=== PATIENT | female | born 1975 | race Caucasian/White ===

== ENCOUNTER 2023-10-16 15:54 | Emergency (ER) | payer OTHER, SELFPAY ==
[2023-10-16] VITALS (10 sets, daily range): BP systolic 156–197; BP diastolic 85–110; PULSE 100–110; RESP 18–20; TEMP 36.9–37; O2SAT 93–100; BMI 48.4
--- NOTE | 2023-10-16 16:45 | ED_ITS ---
HPI - Abdominal Pain General Chief Complaint: Abdominal Pain Stated Complaint: ABDOMINAL PAIN Time Seen by Provider: 10/16/23 16:44 Source: patient Mode of arrival: walk-in Limitations: no limitations History of Present Illness HPI narrative: patient's here for evaluation of lower left abdominal pain. She's had it for three days but getting worse. She's had two colonoscopies in the past but is not known to have any malignancies cancer or polyps. She's had staged total hysterectomy, cholecystectomy. She still has her appendix but the pain is on the left side. She has no history of kidney stones. She said the most the pain is in the abdomen but radiates across the suprapubic area as well. She does not have any urinary symptoms such as frequency urgency dysuria or hematuria. Her bowel movements have not been black. She's not had fever shakes or chills. She is not taking any antibiotics. Does not have any epigastric or upper abdominal pain. She has no discomforts in her chest and she has no shortness of breath. Related Data Home Medications Medication Instructions Recorded Confirmed aspirin 81 mg chewable tablet 1 tab PO DAILY 10/16/23 10/16/23 losartan 50 mg tablet 50 mg PO DAILY 10/16/23 10/16/23 metformin 500 mg tablet,extended 500 mg PO .daily 10/16/23 10/16/23 release 24 hr Allergies Allergy/AdvReac Type Severity Reaction Status Date / Time No Known Drug Allergies Allergy Verified 10/16/23 15:57 Exam Constitutional Vital Signs, click to edit/add: Last Vital Signs Temp 98.6 F 10/16/23 15:57 Pulse 110 H 10/16/23 15:57 Resp 18 10/16/23 15:57 BP 197/110 H 10/16/23 15:57 Pulse Ox 99 10/16/23 15:57 O2 Del Method Room Air 10/16/23 15:57 Course Vital Signs Vital signs: Vital Signs Temperature 98.6 F 10/16/23 15:57 Pulse Rate 110 H 10/16/23 15:57 Respiratory Rate 18 10/16/23 15:57 Blood Pressure 197/110 H 10/16/23 15:57 Pulse Oximetry 99 10/16/23 15:57 Oxygen Delivery Method Room Air 10/16/23 15:57 Temperature 98.6 F 10/16/23 15:57 Pulse Rate 110 H 10/16/23 15:57 Respiratory Rate 18 10/16/23 15:57 Blood Pressure 197/110 H 10/16/23 15:57 Pulse Oximetry 99 10/16/23 15:57 Oxygen Delivery Method Room Air 10/16/23 15:57 MDM - Abdominal Pain MDM Narrative Medical decision making narrative: patient has no acute peritoneal findings but a CT was done to rule out any complications of what clinically is diverticulitis. In fact the CT confirmed that diagnosis. Her white blood cell count is elevated. We'll start her on intravenous Cipro and Flagyl here in the Emergency Room with outpatient follow- up Discharge Plan Discharge Chief Complaint: Abdominal Pain Clinical Impression: Diverticulitis Patient Disposition: Home, Self-Care Time of Disposition Decision: 19:01 Prescriptions / Home Meds: No Action metformin 500 mg tablet extended release 24 hr 500 mg PO .daily losartan 50 mg tablet 50 mg PO DAILY aspirin 81 mg tablet,chewable 1 tab PO DAILY Additional Instructions: Cipro/Flagyl Stand Alone Forms: Portal Instructions Referrals: Physician,Non-Staff, MD [Primary Care Provider] - 1 week
--- NOTE | 2023-10-16 16:54 | CT_ITS ---
[address] [address] Patient Name: ISHAN MOCTEZUMA MRN: [id number] date: 1975 Sex: F Assigned Patient Location: ER Current Patient Location: Accession/Order Number: [id number] Exam Date: 10/16/2023 17:22 Report Date: 10/16/2023 18:04 At the request of: BA GREEN Procedure: CT abdomen pelvis w con EXAM: CT abdomen pelvis w con; [id number] REASON FOR EXAM: left mid and lower abdominal pain TECHNIQUE: Helical CT images of the abdomen and pelvis were obtained after the administration of IV contrast. Multiplanar reformats were generated at the scanner. Dose reduction technique used: Automated exposure control and/or adjustment of the mA and/or kV according to patient size and/or use of iterative reconstruction technique. COMPARISON: CT abdomen/pelvis 07/12/2021. FINDINGS: Visualized Chest: No pleural effusion or any significant pulmonary findings. Abdomen: Liver: Within normal limits. Gallbladder: Resected. Bile Ducts: Within expected limits postcholecystectomy. Pancreas: No mass, ductal dilatation, or inflammatory changes. Spleen: No splenomegaly or focal lesion. Adrenals: No nodules. Kidneys: -No stones or hydronephrosis. -No mass. Vascular: No aortic aneurysm. Incidentally noted retroaortic left renal vein. Lymph Nodes: No adenopathy. Abdominal Wall: No hernia or mass. Pelvis: No mass or adenopathy. Bowel/Peritoneal Cavity/Mesentery: -Moderate pericolonic fat stranding and trace free fluid in an area of moderate diverticulosis involving the mid sigmoid colon (for example series 3 image 119). No loculated fluid collection or evidence of gross perforation. -No bowel obstruction. -No free air. Musculoskeletal: No acute fracture or suspicious osseous lesion. CT/CT abdomen pelvis w con IMPRESSION: Moderate/severe acute uncomplicated diverticulitis of the mid sigmoid colon. Electronically authenticated by: WHIT BURKETT Date: 10/16/2023 18:04
[2023-10-16 17:03] LABS: Bilirubin Urine NEGATIVE (NEGATIVE); Blood Urine MODERATE (NEGATIVE); Clarity Urine CLEAR (CLEAR); Color Urine YELLOW (YELLOW); Glucose Urine UA NEGATIVE (NEGATIVE); Ketones Urine NEGATIVE (NEGATIVE); Leukocyte Esterase Urine NEGATIVE (NEGATIVE); Nitrite Urine NEGATIVE (NEGATIVE); Protein Urine NEGATIVE (NEG/TRACE); Urobilinogen Urine 0.2 EU/dL (0.2-1.0)
[2023-10-16] MEDS: HYDROMORPHONE HCL 1 MG/ML CARTRIDGE IV ×2 (17:04→19:33)
[2023-10-16 17:07] LABS: Urine Microscopic Indicated YES
[2023-10-16 17:12] LABS: Bacteria Urine MODERATE #/HPF (NONE SEEN); Cast Seen? NONE SEEN #/LPF (NONE SEEN); Crystals Seen? None Seen #/HPF (None Seen); Mucus Urine NONE SEEN (NONE SEEN); Squamous Epithelial Cell Urine FEW #/LPF (NONE/RARE); Urine Culture Indicated YES
[2023-10-16 17:13] LABS: HCG Qualitative Urine* NEGATIVE (NEGATIVE)
[2023-10-16 17:27] LABS: Basophils Absolute Auto 0.1 10^3/uL (0.0-0.1); Basophils Percent Auto 0.3 % (0.2-2.0); Eosinophils Absolute Auto 0.2 10^3/uL (0.0-0.7); Hemoglobin 13.5 g/dL (12.0-16.0); Immature Granulocytes Abs Auto 0.08 10^3/uL (0.00-0.03); Immature Granulocytes Pct Auto 0.4 % (0.0-0.5); Lymphocytes Percent Auto 9.9 % (20.5-60.0); Mean Corpuscular HGB Conc 32.1 g/dL (29.9-35.2); Mean Corpuscular Hemoglobin 28.2 pg (26.7-34.0); Mean Corpuscular Volume 87.9 fL (81.0-99.0); Mean Platelet Volume 9.8 fL (9.5-13.5); Monocytes Absolute Auto 1.4 10^3/uL (0.3-0.8); Monocytes Percent Auto 6.8 % (1.7-12.0); Neutrophils Absolute Auto 16.1 10^3/uL (1.4-6.5); Neutrophils Percent Auto 81.6 % (43.0-75.0); Platelet Count 332 10^3/uL (150-450); Red Blood Count 4.78 10^6/uL (4.20-5.40); White Blood Count 19.7 10^3/uL (4.0-11.0)
[2023-10-16 17:42] LABS: Alanine Aminotransferase 35 U/L (14-59); Albumin Globulin Ratio 0.8; Albumin Level 3.5 g/dL (3.4-5.0); Alkaline Phosphatase 86 U/L (46-116); Anion Gap 10.9; Aspartate Amino Transferase 20 U/L (15-37); BUN Creatinine Ratio 13.8; Bilirubin Total 0.8 mg/dL (0.2-1.0); Carbon Dioxide 28.7 mmol/L (21.0-32.0); Chloride 103 mmol/L (98-107); Estimated GFR (African America >60 (>=60); Estimated GFR (Non-African Ame >60 (>=60); Globulin 4.3 g/dL; Glucose 113 mg/dL (74-106); Potassium 3.6 mmol/L (3.5-5.1); Sodium 139 mmol/L (136-145); Total Protein 7.8 g/dL (6.4-8.2)
[2023-10-16] MEDS: CIPROFLOXACIN IN 5 % DEXTROSE 400 MG/200 ML PIGGYBACK 200 MG IV (19:33)
[2023-10-16] MEDS: ONDANSETRON PF 4 MG/2 ML VIAL IV (20:35)
[2023-10-16] MEDS: METRONIDAZOLE/SODIUM CHLORIDE 500 MG/100 ML PREMIX 100 MG IV (20:36)
== END 2023-10-16 22:15 | disposition home or self-care (01) ==
PROVIDERS: Emergency Provider Emergency Medicine Emergency Medical Services
DX: K57.32 Diverticulitis of large intestine without perforation or abscess without bleeding (principal); Z90.710 Acquired absence of both cervix and uterus; Z90.49 Acquired absence of other specified parts of digestive tract; Z79.82 Long term (current) use of aspirin; Z79.899 Other long term (current) drug therapy; Z79.84 Long term (current) use of oral hypoglycemic drugs
CPT/HCPCS: 36415; 74177; 80053; 81001; 84703; 85025; 87086; 96365; 96367; 96375; 96376; 99285; J1170; Q9967

== ENCOUNTER 2023-10-30 14:30 | Inpatient (IN) | payer OTHER, SELFPAY ==
[2023-10-30] VITALS (7 sets, daily range): BP systolic 112–165; BP diastolic 65–109; PULSE 72–93; RESP 16–20; TEMP 36.4–37.7; O2SAT 94–98; BMI 43.5; BMI 44.6
--- NOTE | 2023-10-30 14:55 | CT_ITS ---
[place] [id number] Patient Name: ISHAN MOCTEZUMA MRN: [id number] date: 1975 Sex: F Assigned Patient Location: ER Current Patient Location: ER Accession/Order Number: [id number] Exam Date: 10/30/2023 15:47 Report Date: 10/30/2023 16:38 At the request of: RAMAKRISHNA JACKSON Procedure: CT abdomen pelvis w con EXAMINATION: CT abdomen pelvis w con, 10/30/2023 12:47 PM PST HISTORY: Diverticulitis COMPARISON: 10/16/2023 TECHNIQUE: CT scan of the abdomen and pelvis was performed with IV contrast. CT dose reduction technique was used, including Automated Exposure Control. FINDINGS: Lung: No significant finding. Liver: Hepatic steatosis. Gallbladder: Absent. Spleen: No significant finding. Pancreas: No significant finding. Adrenal glands: No significant finding. Kidneys, ureters and bladder: No significant finding. Bowel: Colonic diverticulosis with pericolonic stranding involving the mid to distal descending colon. Small amount of free peritoneal fluid. No well-formed drainable collection. No free air. Peritoneum/retroperitoneum: As above. Lymph nodes: No significant finding. Vessels: Retroaortic left renal vein. Body wall: No significant finding. Reproductive: No significant finding. Bones: No significant finding. CT/CT abdomen pelvis w con IMPRESSION: Mid to distal descending colon diverticulitis. Hepatic steatosis. Electronically authenticated by: YASMEEN MCKAY Date: 10/30/2023 16:38
[2023-10-30] MEDS: 0.9 % SODIUM CHLORIDE 1,000 ML 999 ML IV (15:18)
[2023-10-30 15:26] LABS: Basophils Absolute Auto 0.1 10^3/uL (0.0-0.1); Basophils Percent Auto 0.3 % (0.2-2.0); Eosinophils Absolute Auto 0.3 10^3/uL (0.0-0.7); Eosinophils Percent Auto 1.5 % (0.9-7.0); Hematocrit 42.7 % (36.0-48.0); Hemoglobin 13.6 g/dL (12.0-16.0); Immature Granulocytes Abs Auto 0.07 10^3/uL (0.00-0.03); Immature Granulocytes Pct Auto 0.4 % (0.0-0.5); Lymphocytes Absolute Auto 1.9 10^3/uL (1.2-3.8); Mean Corpuscular HGB Conc 31.9 g/dL (29.9-35.2); Mean Corpuscular Hemoglobin 27.8 pg (26.7-34.0); Mean Corpuscular Volume 87.1 fL (81.0-99.0); Mean Platelet Volume 9.6 fL (9.5-13.5); Monocytes Absolute Auto 1.1 10^3/uL (0.3-0.8); Monocytes Percent Auto 5.7 % (1.7-12.0); Neutrophils Absolute Auto 15.7 10^3/uL (1.4-6.5); Neutrophils Percent Auto 82.1 % (43.0-75.0); Platelet Count 392 10^3/uL (150-450); Red Cell Distribution Width 12.9 % (11.0-15.0); White Blood Count 19.1 10^3/uL (4.0-11.0)
[2023-10-30 15:27] LABS: Bilirubin Urine NEGATIVE (NEGATIVE); Blood Urine SMALL (NEGATIVE); Clarity Urine CLEAR (CLEAR); Color Urine LT. YELLOW (YELLOW); Glucose Urine UA NEGATIVE (NEGATIVE); Ketones Urine NEGATIVE (NEGATIVE); Leukocyte Esterase Urine NEGATIVE (NEGATIVE); Nitrite Urine NEGATIVE (NEGATIVE); Protein Urine NEGATIVE (NEG/TRACE); Urine Microscopic Indicated YES; Urobilinogen Urine 0.2 EU/dL (0.2-1.0); pH Urine 6.5 (5.0-9.0)
[2023-10-30 15:39] LABS: Bacteria Urine TRACE #/HPF (NONE SEEN); Cast Seen? NONE SEEN #/LPF (NONE SEEN); Crystals Seen? None Seen #/HPF (None Seen); Mucus Urine NONE SEEN (NONE SEEN); RBC Urine 0-2 #/HPF (0-2); Squamous Epithelial Cell Urine RARE #/LPF (NONE/RARE); WBC Urine NONE SEEN #/HPF (NONE SEEN)
[2023-10-30 15:40] LABS: Urine Culture Indicated NO
--- NOTE | 2023-10-30 15:42 | ED.ABDPAIN1 ---
HPI - Abdominal Pain General Chief Complaint: Abdominal Pain Stated Complaint: ABDOMINAL PAIN Time Seen by Provider: 10/30/23 14:54 Source: patient Mode of arrival: walk-in Limitations: no limitations History of Present Illness HPI narrative: Patient is a 48-year-old female who presents to the emergency department for worsening abdominal pain that began last night. She was seen in this emergency department 2 weeks ago and diagnosed with diverticulitis, discharged home on Cipro and Flagyl. She states she finished these medications over a week ago and had some improvement of pain with the medications. She followed up with a GI specialist at [facility] who is scheduling a colonoscopy for her in December. She states last night she had a return of severe pain across the low abdomen, worse on the right side. She has had no fevers or vomiting. No urinary symptoms. No medications taken prior to arrival. She has had a previous total hysterectomy. Related Data Home Medications Medication Instructions Recorded Confirmed aspirin 81 mg chewable tablet 1 tab PO DAILY 10/16/23 10/16/23 losartan 50 mg tablet 50 mg PO DAILY 10/16/23 10/16/23 metformin 500 mg tablet,extended 500 mg PO .daily 10/16/23 10/16/23 release 24 hr cholecalciferol (vitamin D3) 125 5,000 unit PO DAILY 10/30/23 10/30/23 mcg (5,000 unit) capsule Allergies Allergy/AdvReac Type Severity Reaction Status Date / Time No Known Drug Allergies Allergy Verified 10/16/23 15:57 Review of Systems ROS Constitutional Denies: fever or chills Ears, nose, mouth, and throat Denies: throat pain or nasal congestion Cardiovascular Denies: chest pain Respiratory Denies: shortness of breath or cough Gastrointestinal Reports: abdominal pain; Denies: nausea, vomiting or diarrhea Genitourinary Denies: painful urination Musculoskeletal Reports: back pain Integumentary/Breast Denies: rash Neurological Denies: headache PFSH PFSH Social History Smoking status: Former smoker Exam Narrative Exam Narrative: Gen.: Awake, alert, in no distress Head: Normocephalic, atraumatic ENT: Moist mucous membranes Respiratory: No respiratory distress, lungs clear bilaterally Cardio: Regular rate and rhythm Gastrointestinal: Abdomen is soft, nondistended and diffusely tender to palpation Extremities: Moves extremities equally Psych: Normal mood and affect Neuro: No focal neuro deficit Skin: Warm, dry, intact Constitutional Vital Signs, click to edit/add: Last Vital Signs Temp 99.8 F 10/30/23 14:50 Pulse 86 10/30/23 16:09 Resp 16 10/30/23 16:09 BP 126/76 10/30/23 16:09 Pulse Ox 98 10/30/23 16:09 O2 Del Method Room Air 10/30/23 16:09 Course Vital Signs Vital signs: Vital Signs Temperature 99.8 F 10/30/23 14:50 Pulse Rate 93 H 10/30/23 14:50 Respiratory Rate 18 10/30/23 14:50 Blood Pressure 165/109 H 10/30/23 14:50 Pulse Oximetry 97 10/30/23 14:50 Oxygen Delivery Method Room Air 10/30/23 14:50 Temperature 99.8 F 10/30/23 14:50 Pulse Rate 86 10/30/23 16:09 Respiratory Rate 16 10/30/23 16:09 Blood Pressure 126/76 10/30/23 16:09 Pulse Oximetry 98 10/30/23 16:09 Oxygen Delivery Method Room Air 10/30/23 16:09 MDM - Abdominal Pain MDM Narrative Medical decision making narrative: Patient treated with IV fluids, Dilaudid, Zofran. Vital signs are within normal limits. Lab studies show the patient still has significant leukocytosis with a white blood cell count 19.1, normal lactic acid. Urine specimen with no evidence of UTI. CT of the abdomen and pelvis continues to show mid to distal colon diverticulitis, no free air or abscess. I discussed the case with Dr. Ferguson, her GI specialist who she followed up with after her last ER visit. He recommended inpatient treatment with IV antibiotics, patient will be started on IV Zosyn. Admitted to the hospitalist for further evaluation and treatment. Stable at this time. Medical Records Attestation: I reviewed the patient's medical records. Lab Data Attestation: I reviewed the patient's lab results. Labs: Lab Results 10/30/23 Range/Units 15:11 WBC 19.1 H (4.0-11.0) 10^3/uL RBC 4.90 (4.20-5.40) 10^6/uL Hgb 13.6 (12.0-16.0) g/dL Hct 42.7 (36.0-48.0) % MCV 87.1 (81.0-99.0) fL MCH 27.8 (26.7-34.0) pg MCHC 31.9 (29.9-35.2) g/dL RDW 12.9 (11.0-15.0) % Plt Count 392 (150-450) 10^3/uL MPV 9.6 (9.5-13.5) fL Neut % (Auto) 82.1 H (43.0-75.0) % Lymph % (Auto) 10.0 L (20.5-60.0) % [place] % (Auto) 5.7 (1.7-12.0) % Eos % (Auto) 1.5 (0.9-7.0) % Baso % (Auto) 0.3 (0.2-2.0) % Neut # (Auto) 15.7 H (1.4-6.5) 10^3/uL Lymph # (Auto) 1.9 (1.2-3.8) 10^3/uL [place] # (Auto) 1.1 H (0.3-0.8) 10^3/uL Eos # (Auto) 0.3 (0.0-0.7) 10^3/uL Baso # (Auto) 0.1 (0.0-0.1) 10^3/uL Abs Immat Gran (auto) 0.07 H (0.00-0.03) 10^3/uL Imm/Tot Granulo (auto) 0.4 (0.0-0.5) % Sodium 137 (136-145) mmol/L Potassium 4.2 (3.5-5.1) mmol/L Chloride 102 (98-107) mmol/L Carbon Dioxide 26.4 (21.0-32.0) mmol/L Anion Gap 12.8 BUN 8.0 (7.0-18.0) mg/dL Creatinine 0.65 (0.55-1.02) mg/dL Est GFR ( Amer) >60 (>=60) Est GFR (Non-Af Amer) >60 (>=60) BUN/Creatinine Ratio 12.3 Glucose 128 H (74-106) mg/dL Lactate 1.9 (0.4-2.0) mmol/L Calcium 8.9 (8.5-10.1) mg/dL Total Bilirubin 0.8 (0.2-1.0) mg/dL AST 18 (15-37) U/L ALT 37 (14-59) U/L Alkaline Phosphatase 93 (46-116) U/L Total Protein 8.1 (6.4-8.2) g/dL Albumin 3.6 (3.4-5.0) g/dL Globulin 4.5 g/dL Albumin/Globulin Ratio 0.8 Lipase 26.0 (16.0-77.0) U/L Urine Color Lt. yellow (YELLOW) Urine Clarity Clear (CLEAR) Urine pH 6.5 (5.0-9.0) Ur Specific [place] 1.020 (1.005-1.025) Urine Protein Negative (NEG/TRACE) mg/dL Urine Glucose (UA) Negative (NEGATIVE) mg/dL Urine Ketones Negative (NEGATIVE) mg/dL Urine Occult Blood Small A (NEGATIVE) Urine Nitrite Negative (NEGATIVE) Urine Bilirubin Negative (NEGATIVE) Urine Urobilinogen 0.2 (0.2-1.0) EU/dL Ur Leukocyte Esterase Negative (NEGATIVE) Urine RBC 0-2 (0-2) #/HPF Urine WBC None seen (NONE SEEN) #/HPF Ur Squamous Epith Cells Rare (NONE/RARE) #/LPF Urine Crystals None seen (None Seen) #/HPF Urine Bacteria Trace A (NONE SEEN) #/HPF Urine Casts None seen (NONE SEEN) #/LPF Urine Mucus None seen (NONE SEEN) Ur Culture Indicated? No Imaging Data CT scan - abdomen: Attestation: I have reviewed the pertinent imaging results. Discharge Plan Discharge Chief Complaint: Abdominal Pain Clinical Impression: Diverticulitis, Abdominal pain Patient Disposition: Admitted as Observation Time of Disposition Decision: 17:23 Prescriptions / Home Meds: No Action metformin 500 mg tablet extended release 24 hr 500 mg PO .daily losartan 50 mg tablet 50 mg PO DAILY aspirin 81 mg tablet,chewable 1 tab PO DAILY Referrals: Physician,Non-Staff, [Primary Care Provider] - 1 week
[2023-10-30 15:45] LABS: Lactate/Lactic Acid 1.9 mmol/L (0.4-2.0)
[2023-10-30 15:52] LABS: Alanine Aminotransferase 37 U/L (14-59); Albumin Globulin Ratio 0.8; Albumin Level 3.6 g/dL (3.4-5.0); Alkaline Phosphatase 93 U/L (46-116); Anion Gap 12.8; Aspartate Amino Transferase 18 U/L (15-37); BUN Creatinine Ratio 12.3; Bilirubin Total 0.8 mg/dL (0.2-1.0); Calcium 8.9 mg/dL (8.5-10.1); Carbon Dioxide 26.4 mmol/L (21.0-32.0); Chloride 102 mmol/L (98-107); Estimated GFR (African America >60 (>=60); Estimated GFR (Non-African Ame >60 (>=60); Globulin 4.5 g/dL; Glucose 128 mg/dL (74-106); Potassium 4.2 mmol/L (3.5-5.1); Sodium 137 mmol/L (136-145); Total Protein 8.1 g/dL (6.4-8.2)
[2023-10-30] MEDS: HYOSCYAMINE SULFATE 0.125 MG TAB.SUBL SL (16:04)
[2023-10-30] MEDS: ONDANSETRON PF 4 MG/2 ML VIAL IV (16:05)
[2023-10-30] MEDS: HYDROMORPHONE HCL 1 MG/ML CARTRIDGE IV (16:05)
--- NOTE | 2023-10-30 17:31 | P.HP_ITS ---
H&P: HPI History of Present Illness Chief complaint: ABDOMINAL PAIN, diverticulitis Narrative: patient is a 48-year-old female with past medical history of diverticulitis/diverticulosis in which she has had several colonoscopies in the past, type 2 diabetes, hypertension. 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 She presented to the Emergency Room today with pain and was found to have elevated white blood cell count along with a CT abdomen and pelvis that was positive for diverticulitis, no evidence of abscess. Since patient has failed outpatient regimens she will be admitted for treatment of her acute diverticulitis. Lactate level on admission was negative. at the time of admission she feels her pain is improved from the pain medication that was given in the Emergency Room, but still admits to diffuse abdominal pain. She denies any diarrhea, nausea or vomiting.urine test was negative. Feels comfortable at bedside after pain meds in ER. Review of Systems ROS Narrative ROS: a complete review of systems were reviewed with patient and are positive as below or listed in History of Chief Complaint. General: no fever, chills, night sweats Head: no headache, trauma, visual changes, nausea or vomiting Skin: no reported rashes, itching or sores Eyes: no blurriness of vision Ears: no reported hearing loss, vertigo, earache, or tinnitus Throat: no sore throat, hoarseness, swelling of neck, or tongue pain Heart: no chest pain Lungs: no shortness of breath or cough GI: no diarrhea or vomiting/nausea, diffuse abdominal pain Urinary: no urinary urgency, frequency or pain Neuro: no numbness or tingling HEM: no bleeding issues or bruising ENDO: no thyroid problems Psych: no anxiety or depression PFSH PFSH Medical History (Updated 10/30/23 @ 18:31 by Kailee Mike) Mini stroke ?G45.9 - Transient cerebral ischemic attack, unspecified (ICD-10) Hypertension ?I10 - Essential (primary) hypertension (ICD-10) Type 2 diabetes mellitus ?E11.9 - Type 2 diabetes mellitus without complications (ICD-10) Surgical History (Updated 10/30/23 @ 18:30 by Kailee Mike) Hx laparoscopic cholecystectomy ?Z90.49 - Acquired absence of other specified parts of digestive tract (ICD- 10) H/O: hysterectomy ?Z90.710 - Acquired absence of both cervix and uterus (ICD-10) Family History (Updated 10/30/23 @ 18:31 by Kailee Mike) Mother Family history of CHF (congestive heart failure) Family history of COPD (chronic obstructive pulmonary disease) Family history of diabetes mellitus Family history of hypertension Family history of stroke Father Family history of hypertension Family history of diabetes mellitus Social History (Updated 10/30/23 @ 18:33 by Kailee Mike) Within the past year, how often did you have a drink containing alcohol: never Score interpretation: A score less than 3 is consistent with normal alcohol consumption. Smoking status: Former smoker Non-prescribed substance use: denies use Previous occupational history: unemployed Highest level of school completed/degree received: some college, no degree Are you now , , , , never or living with a partner: Little interest or pleasure in doing things: not at all Feeling down, depressed, or hopeless: not at all Life stressors: recent of family or friend Life stressor details: dad passed January 23 Do you think of yourself as: straight/heterosexual Meds Home Medications and Allergies Home Medications Medication Instructions Recorded Confirmed Type aspirin 81 mg chewable tablet 1 tab PO DAILY 10/16/23 10/30/23 History losartan 50 mg tablet 50 mg PO DAILY 10/16/23 10/30/23 History metformin 500 mg tablet,extended 500 mg PO .daily 10/16/23 10/30/23 History release 24 hr cholecalciferol (vitamin D3) 125 5,000 unit PO DAILY 10/30/23 10/30/23 History mcg (5,000 unit) capsule rosuvastatin 10 mg tablet (Crestor) 10 mg PO DAILY 10/30/23 10/30/23 History Allergies Allergy/AdvReac Type Severity Reaction Status Date / Time No Known Drug Allergies Allergy Verified 10/16/23 15:57 Exam Narrative Exam Narrative: General: Patient is alert, and oriented to person, place and time with normal affect, proper hygiene Skin: no visible rashes, or ulcers Head: atraumatic, acephalic Eyes: PERRLA, no nystagmus present, conjunctiva clear, no scleral icterus Ears:normal gross auditory acuity Heart: Normal rate and rhythm, no murmurs/rubs/gallops Lungs: no audible wheezes, crackles and normal breath sounds all lung bethea Abdomen: Normal audible bowel sounds, no distension, mild diffuse tenderness with palpation without rebound/guarding/ or rigidity Musculoskeletal: no swelling bilateral lower extremities Neuro: CN II-X grossly intact Constitutional Vital Signs, click to edit/add: Last Vital Signs Temp 99.8 F 10/30/23 14:50 Pulse 86 10/30/23 16:09 Resp 16 10/30/23 16:09 BP 126/76 10/30/23 16:09 Pulse Ox 98 10/30/23 16:09 O2 Del Method Room Air 10/30/23 16:09 Results Labs Labs: Short CBC 10/30/23 Range/Units 15:11 WBC 19.1 H (4.0-11.0) 10^3/uL Hgb 13.6 (12.0-16.0) g/dL Hct 42.7 (36.0-48.0) % Plt Count 392 (150-450) 10^3/uL BMP 10/30/23 15:11 Sodium 137 Potassium 4.2 Chloride 102 Carbon Dioxide 26.4 BUN 8.0 Creatinine 0.65 Glucose 128 H Calcium 8.9 Liver Function 10/30/23 Range/Units 15:11 Total Bilirubin 0.8 (0.2-1.0) mg/dL AST 18 (15-37) U/L ALT 37 (14-59) U/L Alkaline Phosphatase 93 (46-116) U/L Albumin 3.6 (3.4-5.0) g/dL Urine 10/30/23 Range/Units 15:11 Urine Color Lt. yellow (YELLOW) Urine Clarity Clear (CLEAR) Urine pH 6.5 (5.0-9.0) Ur Specific [place] 1.020 (1.005-1.025) Urine Protein Negative (NEG/TRACE) mg/dL Urine Glucose (UA) Negative (NEGATIVE) mg/dL Assessment and Plan Assessment and Plan (1) Acute diverticulitis of intestine: Assessment and Plan: diagnosis made by CT scan, has failed outpatient treatment we'll treat with IV Zosyn every 8 hours, will monitor lactate levels. Patient also had leukocytosis and will monitor daily. No evidence of abscess on CT scan. We'll consult general surgery if symptoms worsen instead of improve.clear liquid diet and pain control as needed, IV fluids with LR at one twenty-five (2) Type 2 diabetes mellitus: Assessment and Plan: hold metformin, sliding scale insulin as needed Qualifiers: Diabetes mellitus complication status: without complication Diabetes mellitus termite inspector insulin use: without termite inspector use Qualified Code(s): E11.9 - Type 2 diabetes mellitus without complications (3) Hypertension: Assessment and Plan: continue home losartan Qualifiers: Hypertension type: primary hypertension Qualified Code(s): I10 - Essential (primary) hypertension Plan patient is full code Lovenox for deep vein thrombosis prophylaxis Patient is an inpatient status is expected to stay more than two midnights
[2023-10-30] MEDS: PIPERACILLIN SODIUM/TAZOBACTAM 4.5 GM in 0.9 % SODIUM CHLORIDE 50 ML IV (17:41)
[2023-10-30 18:12] LABS: Alanine Aminotransferase 33 U/L (14-59); Albumin Globulin Ratio 0.8; Albumin Level 3.1 g/dL (3.4-5.0); Alkaline Phosphatase 80 U/L (46-116); Anion Gap 8.9; Aspartate Amino Transferase 18 U/L (15-37); BUN Creatinine Ratio 11.5; Bilirubin Total 0.7 mg/dL (0.2-1.0); Calcium 8.2 mg/dL (8.5-10.1); Chloride 103 mmol/L (98-107); Estimated GFR (African America >60 (>=60); Estimated GFR (Non-African Ame >60 (>=60); Globulin 3.9 g/dL; Glucose 107 mg/dL (74-106); Potassium 3.9 mmol/L (3.5-5.1); Sodium 138 mmol/L (136-145)
[2023-10-30] MEDS: LACTATED RINGER'S SOLUTION 1,000 ML 125 ML IV (18:28)
[2023-10-30 19:58] LABS: Glucometer 107 mg/dL (74-106)
[2023-10-30] MEDS: ACETAMINOPHEN 325 MG TABLET 650 MG PO (20:05)
[2023-10-30] MEDS: PANTOPRAZOLE SODIUM 40 MG VIAL IV (21:43)
[2023-10-30] MEDS: ENOXAPARIN SODIUM 40 MG/0.4 ML SYRINGE SUBQ (21:43)
[2023-10-31] VITALS (16 sets, daily range): BP systolic 129–147; BP diastolic 69–84; PULSE 65–94; RESP 18–20; TEMP 36.4–36.9; O2SAT 95–97
[2023-10-31] MEDS: LACTATED RINGER'S SOLUTION 1,000 ML 125 ML IV ×3 (02:05→16:34)
[2023-10-31] MEDS: KETOROLAC TROMETHAMINE 30 MG/ML VIAL IVP (03:00)
[2023-10-31 05:27] LABS: Basophils Percent Auto 0.3 % (0.2-2.0); Eosinophils Absolute Auto 0.3 10^3/uL (0.0-0.7); Hematocrit 36.6 % (36.0-48.0); Hemoglobin 11.4 g/dL (12.0-16.0); Immature Granulocytes Abs Auto 0.03 10^3/uL (0.00-0.03); Immature Granulocytes Pct Auto 0.3 % (0.0-0.5); Lymphocytes Absolute Auto 2.2 10^3/uL (1.2-3.8); Lymphocytes Percent Auto 19.1 % (20.5-60.0); Mean Corpuscular HGB Conc 31.1 g/dL (29.9-35.2); Mean Corpuscular Hemoglobin 27.5 pg (26.7-34.0); Mean Corpuscular Volume 88.2 fL (81.0-99.0); Monocytes Absolute Auto 0.8 10^3/uL (0.3-0.8); Monocytes Percent Auto 6.6 % (1.7-12.0); Neutrophils Percent Auto 70.7 % (43.0-75.0); Platelet Count 316 10^3/uL (150-450); Red Blood Count 4.15 10^6/uL (4.20-5.40); Red Cell Distribution Width 12.8 % (11.0-15.0); White Blood Count 11.4 10^3/uL (4.0-11.0)
[2023-10-31 05:50] LABS: Lactate/Lactic Acid 0.8 mmol/L (0.4-2.0)
[2023-10-31 08:06] LABS: Glucometer 99 mg/dL (74-106)
[2023-10-31 08:12] LABS: Alanine Aminotransferase 38 U/L (14-59); Albumin Globulin Ratio 0.7; Albumin Level 2.9 g/dL (3.4-5.0); Alkaline Phosphatase 83 U/L (46-116); Anion Gap 13.5; Aspartate Amino Transferase 39 U/L (15-37); BUN Creatinine Ratio 10.3; Bilirubin Total 0.7 mg/dL (0.2-1.0); Calcium 8.2 mg/dL (8.5-10.1); Carbon Dioxide 27.3 mmol/L (21.0-32.0); Chloride 105 mmol/L (98-107); Estimated GFR (African America >60 (>=60); Estimated GFR (Non-African Ame >60 (>=60); Globulin 3.9 g/dL; Glucose 100 mg/dL (74-106); Potassium 3.8 mmol/L (3.5-5.1); Sodium 142 mmol/L (136-145); Total Protein 6.8 g/dL (6.4-8.2)
[2023-10-31] MEDS: PANTOPRAZOLE SODIUM 40 MG VIAL IV (08:33)
[2023-10-31] MEDS: ASPIRIN 81 MG TABLET.DR PO (09:03)
[2023-10-31] MEDS: PIPERACILLIN SODIUM/TAZOBACTAM 3.375 GM in 0.9 % SODIUM CHLORIDE 50 ML IV ×2 (09:05→16:33)
[2023-10-31] MEDS: LOSARTAN POTASSIUM 50 MG TABLET 25 MG PO (09:12)
--- NOTE | 2023-10-31 09:34 | P.PN_ITS ---
<Statement entered by Donna Sanchez DO - 10/31/23 13:32> This documentation has been reviewed and approved. I have also seen and evaluated patient, chart and findings. I agree with the above and assessments and plan. Progress Note: Subjective Subjective Interval history: 10/31/23 0840 The patient is resting in bed at the time of my exam. She awakens easily to voice and answers all questions appropriately. She denies abdominal pain at rest, denies nausea and vomiting overnight. She does note abdominal tenderness with palpation but reports that her symptoms are improving. As she failed outpatient treatment with p.o. Cipro and Flagyl, we believe another day of IV Zosyn is indicated to appropriately treat her persistent diverticulitis. We will advance her diet to full liquid at lunch today and see how she tolerates this. Mild increase in AST liver enzyme today. Hepatic steatosis noted on CT imaging. Monitor trend w/ CMP daily and consider further work up pending clinical course. Exam Constitutional Vital Signs, click to edit/add: Last Vital Signs Temp 98 F 10/31/23 05:34 Pulse 72 10/31/23 08:00 Resp 18 10/31/23 05:34 BP 129/69 10/31/23 05:34 Pulse Ox 95 10/31/23 05:34 O2 Del Method Room Air 10/31/23 05:34 Common normals: no apparent distress, oriented x3 and alert General appearance: cooperative Orientation/consciousness: Yes awake HENNY Common normals: normocephalic, head/scalp atraumatic and hearing grossly normal bilaterally Eye Common normals: PERRL, EOMs intact bilaterally, conjunctivae normal and no scleral icterus General eye: normal appearance of both eyes Chest Common normals: inspection of chest normal Chest: symmetrical chest wall rise Respiratory Common normals: normal respiratory effort, no use of accessory muscles and clear to auscultation bilaterally Effort & inspection: able to speak in complete sentences Cardio Common normals: regular rate, regular rhythm, S1 normal heart sound, S2 normal heart sound and peripheral pulses 2+ throughout Heart sounds: murmur (HSM 2/6) GI Common normals: Normal to inspection, nondistended, normoactive bowel sounds present, soft to palpation and no hepatosplenomegaly Palpation: tender (LLQ, L flank); no guarding, not rigid and no rebound tenderness present Bladder/kidney exam: bladder normal to palpation Extremity Common normals: normal to inspection and no calf tenderness General: no clubbing, no cyanosis and no edema Neuro Common normals: CN's II-XII intact bilaterally, moves all extremities, no focal motor deficits and no sensory deficits noted Psych Common normals: mental status grossly normal Progress Note: Objective Labs Labs: Short CBC 10/30/23 10/31/23 Range/Units 15:11 04:51 WBC 19.1 H 11.4 H (4.0-11.0) 10^3/uL Hgb 13.6 11.4 L (12.0-16.0) g/dL Hct 42.7 36.6 (36.0-48.0) % Plt Count 392 316 (150-450) 10^3/uL BMP 10/30/23 10/30/23 10/31/23 15:11 17:45 04:51 Sodium 137 138 142 Potassium 4.2 3.9 3.8 Chloride 102 103 105 Carbon Dioxide 26.4 30.0 27.3 BUN 8.0 7.0 6.0 L Creatinine 0.65 0.61 0.58 Glucose 128 H 107 H 100 Calcium 8.9 8.2 L 8.2 L Liver Function 10/30/23 10/30/23 10/31/23 Range/Units 15:11 17:45 04:51 Total Bilirubin 0.8 0.7 0.7 (0.2-1.0) mg/dL AST 18 18 39 H (15-37) U/L ALT 37 33 38 (14-59) U/L Alkaline Phosphatase 93 80 83 (46-116) U/L Albumin 3.6 3.1 L 2.9 L (3.4-5.0) g/dL Urine 10/30/23 Range/Units 15:11 Urine Color Lt. yellow (YELLOW) Urine Clarity Clear (CLEAR) Urine pH 6.5 (5.0-9.0) Ur Specific [place] 1.020 (1.005-1.025) Urine Protein Negative (NEG/TRACE) mg/dL Urine Glucose (UA) Negative (NEGATIVE) mg/dL Progress Note: A&P Assessment and Plan (1) Acute diverticulitis of intestine: Assessment and Plan: ACUTE * Improving * Continue IV Zosyn every 8 hours * Failed outpatient treatment w/ PO Cipro/Flagyl prescribed by GI provider * Lactate levels - WNL on AM labs. * Leukocytosis improving - 11.4 on AM labs, down from 19.1 on admission * CBC daily * No evidence of abscess on CT scan. 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
[2023-10-31 11:36] LABS: Glucometer 127 mg/dL (74-106)
--- NOTE | 2023-10-31 11:41 | CM.NOTE ---
Rounds made with Dr. Sanchez, no discharge today. No discharge needs identified for patient.
[2023-10-31 16:47] LABS: Glucometer 104 mg/dL (74-106)
[2023-10-31] MEDS: ENOXAPARIN SODIUM 40 MG/0.4 ML SYRINGE SUBQ (20:39)
[2023-10-31 21:06] LABS: Glucometer 142 mg/dL (74-106)
[2023-11-01] VITALS (7 sets, daily range): BP systolic 127; BP diastolic 78; PULSE 59–79; RESP 18; TEMP 36.6; O2SAT 96
[2023-11-01] MEDS: PIPERACILLIN SODIUM/TAZOBACTAM 3.375 GM in 0.9 % SODIUM CHLORIDE 50 ML IV ×2 (01:19→09:23)
[2023-11-01] MEDS: LACTATED RINGER'S SOLUTION 1,000 ML 125 ML IV (04:17)
[2023-11-01] MEDS: KETOROLAC TROMETHAMINE 30 MG/ML VIAL IVP (04:19)
[2023-11-01 04:44] LABS: Basophils Absolute Auto 0.1 10^3/uL (0.0-0.1); Basophils Percent Auto 0.4 % (0.2-2.0); Eosinophils Absolute Auto 0.4 10^3/uL (0.0-0.7); Eosinophils Percent Auto 3.3 % (0.9-7.0); Hematocrit 35.9 % (36.0-48.0); Hemoglobin 11.6 g/dL (12.0-16.0); Immature Granulocytes Abs Auto 0.03 10^3/uL (0.00-0.03); Immature Granulocytes Pct Auto 0.3 % (0.0-0.5); Lymphocytes Absolute Auto 2.9 10^3/uL (1.2-3.8); Lymphocytes Percent Auto 24.7 % (20.5-60.0); Mean Corpuscular HGB Conc 32.3 g/dL (29.9-35.2); Mean Corpuscular Hemoglobin 28.3 pg (26.7-34.0); Mean Corpuscular Volume 87.6 fL (81.0-99.0); Mean Platelet Volume 9.9 fL (9.5-13.5); Monocytes Absolute Auto 0.8 10^3/uL (0.3-0.8); Monocytes Percent Auto 6.5 % (1.7-12.0); Neutrophils Absolute Auto 7.6 10^3/uL (1.4-6.5); Neutrophils Percent Auto 64.8 % (43.0-75.0); Platelet Count 358 10^3/uL (150-450); Red Cell Distribution Width 12.7 % (11.0-15.0); White Blood Count 11.8 10^3/uL (4.0-11.0)
[2023-11-01 05:10] LABS: Alanine Aminotransferase 41 U/L (14-59); Albumin Globulin Ratio 0.8; Alkaline Phosphatase 79 U/L (46-116); Anion Gap 10.4; Aspartate Amino Transferase 21 U/L (15-37); BUN Creatinine Ratio 7.5; Bilirubin Total 0.5 mg/dL (0.2-1.0); Carbon Dioxide 29.1 mmol/L (21.0-32.0); Chloride 103 mmol/L (98-107); Estimated GFR (African America >60 (>=60); Estimated GFR (Non-African Ame >60 (>=60); Globulin 3.9 g/dL; Glucose 103 mg/dL (74-106); Potassium 3.5 mmol/L (3.5-5.1); Sodium 139 mmol/L (136-145); Total Protein 6.9 g/dL (6.4-8.2)
[2023-11-01] MEDS: LOSARTAN POTASSIUM 50 MG TABLET 25 MG PO (08:38)
[2023-11-01] MEDS: ASPIRIN 81 MG TABLET.DR PO (08:38)
[2023-11-01] MEDS: PANTOPRAZOLE SODIUM 40 MG VIAL IV (09:20)
--- NOTE | 2023-11-01 09:57 | P.DS_ITS ---
<Statement entered by Donna Sanchez DO - 11/01/23 13:42> This documentation has been reviewed and approved. I also seen and evaluated patient at the time of discharge. I agree with the above findings and plan for discharge. 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 She just completed a course of Cipro and Flagyl as an outpatient which is considered failed therapy. There was no evidence of abscess on CT imaging. She was treated with IVPB Zosyn and her diet was restricted to clear liquids initially. Her symptoms improved and we were able to successfully advance her diet to a regular diet without resumption of abdominal pain or any other symptom. As her symptoms are resolved, she is being discharged home in stable condition. She has been prescribed Augmentin to complete a 14-day total course. 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 Time Spent with Patient Time attestation: Total time spent providing and/or coordinating discharge services: Time spent: greater than 30 minutes Specific discharge activities: Physical exam, discussion of discharge plan, questions answered. Exam Constitutional Vital Signs, click to edit/add: Last Vital Signs Temp 97.8 F 11/01/23 05:17 Pulse 59 L 11/01/23 08:00 Resp 18 11/01/23 05:17 BP 127/78 11/01/23 05:17 Pulse Ox 96 11/01/23 05:17 O2 Del Method Room Air 11/01/23 05:17 Common normals: no apparent distress, oriented x3 and alert General appearance: cooperative Orientation/consciousness: Yes awake HENMT Common normals: normocephalic and head/scalp atraumatic Eye Common normals: PERRL, EOMs intact bilaterally, conjunctivae normal and no s cleral icterus Neck & C-Spine Common normals: no JVD Respiratory Common normals: normal respiratory effort, no use of accessory muscles and clear to auscultation bilaterally Effort & inspection: able to speak in complete sentences and symmetric chest movement Cardio Common normals: no JVD, regular rate, regular rhythm, S1 normal heart sound, S2 normal heart sound and peripheral pulses 2+ throughout Heart sounds: murmur (HSM 2/6) GI Common normals: Normal to inspection, nondistended, normoactive bowel sounds present and soft to palpation Palpation: tender (Minimal tenderness LLQ) Bladder/kidney exam: bladder normal to palpation Extremity Common normals: normal to inspection, full ROM, normal capillary refill and no pedal edema General: no clubbing and no cyanosis Neuro Common normals: moves all extremities, no focal motor deficits and no sensory deficits noted Speech: speech normal Psych Common normals: mental status grossly normal and activity/motor behavior normal DS: Data Data Completed and Pending Labs on day of discharge: Labs from last 24 hours 11/01/23 10/31/23 10/31/23 04:13 20:55 16:47 WBC 11.8 H RBC 4.10 L Hgb 11.6 L Hct 35.9 L MCV 87.6 MCH 28.3 MCHC 32.3 RDW 12.7 Plt Count 358 MPV 9.9 Neut % (Auto) 64.8 Lymph % (Auto) 24.7 [place] % (Auto) 6.5 Eos % (Auto) 3.3 Baso % (Auto) 0.4 Neut # (Auto) 7.6 H Lymph # (Auto) 2.9 [place] # (Auto) 0.8 Eos # (Auto) 0.4 Baso # (Auto) 0.1 Abs Immat Gran (auto) 0.03 Imm/Tot Granulo (auto) 0.3 Sodium 139 Potassium 3.5 Chloride 103 Carbon Dioxide 29.1 Anion Gap 10.4 BUN 5.0 L Creatinine 0.67 Est GFR ( Amer) >60 Est GFR (Non-Af Amer) >60 BUN/Creatinine Ratio 7.5 Glucose 103 Calcium 9.0 Total Bilirubin 0.5 AST 21 ALT 41 Alkaline Phosphatase 79 Total Protein 6.9 Albumin 3.0 L Globulin 3.9 Albumin/Globulin Ratio 0.8 POC Glucose 142 H 104 10/31/23 11:34 WBC RBC Hgb Hct MCV MCH MCHC RDW Plt Count MPV Neut % (Auto) Lymph % (Auto) [place] % (Auto) Eos % (Auto) Baso % (Auto) Neut # (Auto) Lymph # (Auto) [place] # (Auto) Eos # (Auto) Baso # (Auto) Abs Immat Gran (auto) Imm/Tot Granulo (auto) Sodium Potassium Chloride Carbon Dioxide Anion Gap BUN Creatinine Est GFR ( Amer) Est GFR (Non-Af Amer) BUN/Creatinine Ratio Glucose Calcium Total Bilirubin AST ALT Alkaline Phosphatase Total Protein Albumin Globulin Albumin/Globulin Ratio POC Glucose [address] scan - abdomen: Radiologist's impression: 10/30/23 IMPRESSION: Mid to distal descending colon diverticulitis. Hepatic steatosis. Discharge Plan Discharge Disposition: Home, Self-Care Discharge Medications: New amoxicillin-pot clavulanate 875-125 mg tablet 1 tab PO Q8H 12 Days Qty: 36 0RF Continued metformin 500 mg tablet extended release 24 hr 500 mg PO .daily Patient Comments: with evening meal losartan 50 mg tablet 25 mg PO DAILY Rx Instructions: pt was decreased in dose by doctor due to dizziness aspirin 81 mg tablet,chewable 1 tab PO DAILY cholecalciferol (vitamin D3) 125 mcg (5,000 unit) capsule 5,000 unit PO DAILY rosuvastatin [Crestor] 10 mg tablet 10 mg PO DAILY Activity: increase activity as tolerated Diet: advance to your usual diet Forms: Portal Instructions Follow Up Appointments: @ 1:45pm with Leticia Francis NP [phone] [phone] - GI Provider will be in contact to schedule a follow up if needed.
--- NOTE | 2023-11-01 10:22 | CM.NOTE ---
Rounding with Dr. Sanchez, and discussed likely discharge today and pt. is in agreement with this plan. Discussed eating regular food and had less pain than before. No anticipated discharge needs identified for this patient at discharge.
[2023-11-01 11:27] LABS: Glucometer 192 mg/dL (74-106)
--- NOTE | 2023-11-03 13:21 | CM.DCFOLLOWU ---
First discharge follow up call attempted today, no answer. Unable to reach patient at this time.
--- NOTE | 2023-11-06 15:55 | CM.DCFOLLOWU ---
Person spoke with: patient How are you feeling? good How is your pain? none Did you understand your discharge instructions? yes Do you have any questions about your discharge instructions? no Were you given any prescriptions at discharge? yes Were you able to get your prescriptions filled? no. I got to the pharmacy and they told me my insurance would not cover the medication. No one contacted patient's primary care provider. Pt. has follow up appointment tomorrow coming up and she states she would ask then. Informed patient if she is concerned to contact primary care prior to follow up appointment to discuss, pt. voiced understanding. Do you understand how to take your medications as ordered? yes Do you have any questions about your follow up appointment and do you plan to keep your follow up appointment? plans on keeping scheduled follow up appointment. Is there anything else that you would like to discuss? no Questions/Comments/Concerns/Other: n/a
== END 2023-11-01 14:31 | disposition home or self-care (01) | DRG 244 ==
LOC: ER 17:24 → MS 18:01
PROVIDERS: Physician Assistant; Admitting Provider Family Medicine; Emergency Provider Emergency Medicine Emergency Medical Services; Visit Provider Family Medicine
DX: K57.32 Diverticulitis of large intestine without perforation or abscess without bleeding (principal); E11.9 Type 2 diabetes mellitus without complications; I10 Essential (primary) hypertension; Z79.899 Other long term (current) drug therapy; Z79.82 Long term (current) use of aspirin; Z79.84 Long term (current) use of oral hypoglycemic drugs; Z87.891 Personal history of nicotine dependence; Z90.49 Acquired absence of other specified parts of digestive tract; Z86.73 Personal history of transient ischemic attack (TIA), and cerebral infarction without residual deficits; Z90.710 Acquired absence of both cervix and uterus
CPT/HCPCS: 36415; 74177; 80053; 81001; 82948; 83605; 83690; 85025; 96365; 96366; 96372; 96375; 96376; 99285; J1170; Q9967